=== PATIENT | male | born 1985 | race Two or more races ===

== ENCOUNTER 2020-09-15 11:37 | Emergency (ER) | payer MEDICAID ==
--- NOTE | 2020-09-15 13:53 | EDM.PDOC ---
ED HPI GENERAL MEDICAL PROBLEM - General Chief Complaint: Lower Extremity Injury/Pain Stated Complaint: SWOLLEN RT ANKLE Time Seen by Provider: 09/15/20 13:30 Source of Information: Reports: Patient History Limitations: Reports: No Limitations - History of Present Illness INITIAL COMMENTS - FREE TEXT/NARRATIVE: 35-year-old male with a reddened, swollen inflamed right lateral ankle yesterday. He was "fine", was carrying a piece of wood then turned and felt a sudden sharp pain in his right lateral ankle. It instantly swelled and since this has become very painful and red. Onset: Sudden Duration: Hour(s): (Symptoms started last evening fairly suddenly) Location: Reports: Lower Extremity, Right Worsens with: Reports: Other (Weightbearing or movement is painful) Right Ankle Pain Score (Numeric/FACES): 6 - Related Data Allergies Allergy/AdvReac Type Severity Reaction Status Date / Time No Known Allergies Allergy Verified 09/15/20 13:32 Home Meds: Home Meds NK [No Known Home Meds] 09/15/20 [History] Past Medical History - Past Health History Medical/Surgical History: Denies Medical/Surgical History Social & Family History - Tobacco Use Tobacco Use Status *Q: Current Every Day Tobacco User Years of Tobacco use: 18 Packs/Tins Daily: 0.5 - Caffeine Use Caffeine Use: Reports: Coffee, Soda - Recreational Drug Use Recreational Drug Use: Yes Recreational Drug Type: Reports: Marijuana/Hashish Recreational Drug Use Frequency: Daily Review of Systems - Review of Systems Review Of Systems: See Below Constitutional: Denies: Fever Respiratory: Denies: Shortness of Breath Cardiovascular: Denies: Chest Pain Neurological: Reports: Other (Fatigue) ED EXAM, GENERAL - Physical Exam Exam: See Below Exam Limited By: No Limitations General Appearance: Alert, No Apparent Distress, Other (Patient appears to be having trouble staying awake) Head: Atraumatic Respiratory/Chest: No Respiratory Distress Extremities: Other (Exam is otherwise limited to the lower extremities. The right ankle compared to the left has redness and swelling over the lateral malleolus into the posterior ankle near the Achilles tendon it is tender to palpation.) Neurological: Inattentive, Slow to Respond Psychiatric: Flat Affect Skin Exam: Erythema Course - Vital Signs Last Recorded V/S: Last Vital Signs Temp 96.8 F L 09/15/20 13:35 Pulse 93 09/15/20 13:35 Resp 16 09/15/20 13:35 BP 129/88 09/15/20 13:35 Pulse Ox 99 09/15/20 13:35 - Re-Assessments/Exams Free Text/Narrative Re-Assessment/Exam: 09/15/20 13:52 A right ankle x-ray was obtained. 09/15/20 14:13 X-ray is completely normal other than some minimal soft tissue swelling. He will be placed on Augmentin 875 twice daily for at least 7 days, continue wrapping and elevate when able. Increase activity as tolerated, or recheck in 2 to 3 days if not improving satisfactorily. Departure - Departure Time of Disposition: 14:23 Disposition: Home, Self-Care 01 Clinical Impression: Cellulitis of right ankle - Discharge Information Instructions: Cellulitis, Adult, Oduo-[id number] Referrals: PCP,None [Primary Care Provider] - Forms: ED Department Discharge Care Plan Goals: Take 1 dose of antibiotic with food twice daily for at least 7 days, continue wrapping the ankle for comfort and use crutches if needed. Consider rechecking in 3 to 4 days if not improving. Sepsis Event Note (ED) - Evaluation Sepsis Screening Result: No Definite Risk - Focused Exam Vital Signs: Vital Signs Temp Pulse Resp BP Pulse Ox 09/15/20 13:35 96.8 F L 93 16 129/88 99 09/15/20 13:22 96.8 F L 93 16 129/88 99
--- NOTE | 2020-09-15 14:44 | CR ---
Ankle Min 3V Rt CLINICAL HISTORY: Redness, swelling, pain, NKI FINDINGS: The soft tissues are swollen generally. No acute fracture or dislocation is noted. Ankle mortise is intact. Articular surfaces are smooth. Impression: Soft tissue swelling No osseous lesion
== END 2020-09-15 14:57 | disposition home or self-care (01) ==
LOC: JP.ED 11:37
DX: L03.115 Cellulitis of right lower limb (principal); F17.210 Nicotine dependence, cigarettes, uncomplicated
CPT/HCPCS: 73610-26-RT; 73610-RT; 99283-25